=== PATIENT | female | born 2000 | race Caucasian/White ===

== ENCOUNTER 2021-07-06 20:29 | Emergency (ER) | payer BC, SELFPAY ==
[2021-07-06 21:18] VITALS: BP 126/79; PULSE 85; RESP 18; TEMP 37.1; O2SAT 100; BMI 18.4
--- NOTE | 2021-07-06 22:06 | ED.ALLEREA ---
HPI - Allergic Reaction General Chief complaint: Allergic Reaction Stated complaint: allergic reaction Time Seen by Provider: 07/06/21 21:58 Source: patient Mode of arrival: ambulatory Limitations: no limitations History of Present Illness HPI narrative: Patient with no history of allergic reaction in the past had sushi with shrimp earlier within few minutes after that when patient started running notice itching the palms and high felt dizzy lightheaded felt like passing out took 50 mg of Benadryl and start feeling better no rash on arrival patient's symptoms started 2 hours ago. No lips or tongue swelling or shortness of breath patient never had anaphylaxis in the past Related Data Previous Rx's Medication Instructions Recorded diphenhydramine HCl 25 mg capsule 50 mg PO Q6H PRN #30 cap 07/06/21 (Benadryl) epinephrine 0.3 mg/0.3 mL 0.3 mg IM Q30M PRN #2 ea 07/06/21 injection, auto-injector (EpiPen 2-Joao) Allergies Allergy/AdvReac Type Severity Reaction Status Date / Time amoxicillin Allergy Unknown Rash Verified 07/06/21 21:18 ibuprofen Allergy Swelling Verified 07/06/21 21:18 Review of Systems Review of Systems: Yes all other systems are reviewed and are negative PMFSH Social History Social History Advance Directives: No Advance Directives Information Provided: Yes Patient : No Physical Exam Vital Signs: Vital Signs: Last Vital Signs Temp 98.7 F 07/06/21 21:18 Pulse 85 07/06/21 21:18 Resp 18 07/06/21 21:18 BP 126/79 07/06/21 21:18 Pulse Ox 100 07/06/21 21:18 Body Mass Index 18.4 Appearance: Alert. Oriented X3. No acute distress. ENT: Pharynx normal. Oral Mucosa moist lips and tongue is normal uvula normal Neck: Normal inspection. Neck supple. CVS: Normal heart rate and rhythm. Pulses normal. Respiratory: No respiratory distress. Equal air entry bilateral, no wheezing/rales/rhonchi Abdomen: Soft and nontender. Skin: Skin warm and dry. Normal skin color. Normal skin turgor. No rash noticed Extremities: No lower extremity edema. No calf tenderness Neuro: Oriented X 3. MDM - Allergic Reaction MDM Narrative Medical decision making narrative: Patient with systemic anaphylactic reaction to seafood which she had prior on arrival patient almost back to normal after taking 50 mg of Benadryl 2 hours prior. Will give dose of Decadron and Pepcid and prescription for EpiPen and Benadryl advised to follow-up with PCP for further evaluation and not to eat seafood Differential Diagnosis Differential diagnosis: Likely anaphylaxis Discharge Plan Discharge Clinical Impression: Allergic reaction Patient Disposition: Home, Self-Care Instructions: General Allergic Reaction (ED) Additional Instructions: Take Benadryl as advised for allergic reaction Follow with PCP for further evaluation Prescriptions: New epinephrine [EpiPen 2-Joao] 0.3 mg/0.3 mL auto-injector 0.3 mg IM Q30M PRN (Reason: anaphylaxis) Qty: 2 RF: 0 diphenhydramine HCl [Benadryl] 25 mg capsule 50 mg PO Q6H PRN (Reason: allergic reaction) Qty: 30 RF: 0 Discharge Date/Time: 07/06/21 22:24
[2021-07-06] MEDS: dexAMETHasone 4 MG TABLET PO (22:16)
[2021-07-06] MEDS: Famotidine 20 MG TABLET PO (22:16)
== END 2021-07-06 22:24 | disposition home or self-care (01) ==
PROVIDERS: Emergency Provider Internal Medicine
DX: L50.0 Allergic urticaria (principal); Z79.899 Other long term (current) drug therapy
CPT/HCPCS: 99281; 99283; J8540